=== PATIENT | female | born 1995 | race Caucasian/White ===

== ENCOUNTER 2017-12-02 19:55 | Emergency (ER) | payer OTHER ==
[2017-12-02 20:01] VITALS: BP 141/99
--- NOTE | 2017-12-02 22:01 | EDM.PDOCBH ---
ED HPI GENERAL MEDICAL PROBLEM - General Chief Complaint: Behavioral/Psych Stated Complaint: SELF CUTTING, [id number] Time Seen by Provider: 12/02/17 21:00 - History of Present Illness INITIAL COMMENTS - FREE TEXT/NARRATIVE: FDC depression, tonight tried cutting self on left arm with kitchen knife. Prior attempt [place]. - Related Data Allergies Allergy/AdvReac Type Severity Reaction Status Date / Time amoxicillin Allergy Other Verified 12/02/17 20:01 Sulfa (Sulfonamide Allergy Hives Verified 12/02/17 20:01 Antibiotics) Home Meds: Home Meds FLUoxetine [PROzac] 40 mg PO DAILY 07/14/16 [History] Fluticasone/Salmeterol [Advair 250-50 Diskus] 1 inh INH DAILY 07/14/16 [History] Fexofenadine HCl [Ivet Allergy] 60 mg PO DAILY 12/02/17 [History] Past Medical History - Past Health History Medical/Surgical History: Denies Medical/Surgical History HEENT History: Reports: Impaired Vision Other HEENT History: wears contacts Cardiovascular History: Reports: None Respiratory History: Reports: Asthma Gastrointestinal History: Reports: Gastritis Genitourinary History: Reports: None 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 Musculoskeletal History: Reports: None Neurological History: Reports: Concussion, Head Trauma, Migraines Psychiatric History: Reports: Depression, Suicide Attempt, Suicidal Ideation Endocrine/Metabolic History: Reports: None Hematologic History: Reports: None Immunologic History: Reports: None Oncologic (Cancer) History: Reports: None Dermatologic History: Reports: None - Past Surgical History Head Surgeries/Procedures: Reports: None HEENT Surgical History: Reports: Oral Surgery GI Surgical History: Reports: None Female Surgical History: Reports: None Social & Family History - Tobacco Use Smoking Status *Q: Current Every Day Smoker Years of Tobacco use: 1 Packs/Tins Daily: 0.5 Second Hand Smoke Exposure: Yes - Alcohol Use Days Per Week of Alcohol Use: 0 - Recreational Drug Use Recreational Drug Use: No Drug Use in Last 12 Months: No - Living Situation & Occupation Living situation: Reports: Single, with Family Occupation: Employed ED ROS GENERAL - Review of Systems Review Of Systems: ROS reveals no pertinent complaints other than HPI. ED EXAM, BEHAVIORAL HEALTH - Physical Exam Exam: See Below Exam Limited By: No Limitations General Appearance: Alert, Mild Distress Eye Exam: Bilateral Eye: EOMI Ears: Normal External Exam Throat/Mouth: Normal Voice Head: Atraumatic Neck: Full Range of Motion Neurological: Alert, Normal Cognition, Oriented x 3 Psychiatric: Alert, Flat Affect, Tearful, Suicidal Thoughts Skin Exam: Warm, Dry, Normal color, Signs of self injury (2 superficial scratches 7cm inner left forearm, no active bleeding) COURSE, BEHAVIORAL HEALTH COMP - Course Vital Signs: Last Vital Signs Temp 96.8 F 12/02/17 19:57 Pulse 92 12/02/17 19:57 Resp 18 12/02/17 19:57 BP 141/99 H 12/02/17 19:57 Pulse Ox 100 12/02/17 19:57 Orders, Labs, Meds: Laboratory Tests 12/02/17 12/02/17 12/02/17 Range/Units 21:25 21:25 21:25 Urine Color Light yellow (YELLOW) Urine Appearance Slightly cloudy (CLEAR) Urine pH 7.0 (5.0-9.0) Ur Specific [place] 1.010 (1.005-1.030) Urine Protein Negative (NEGATIVE) Urine Glucose (UA) Negative (NEGATIVE) Urine Ketones Negative (NEGATIVE) Urine Occult Blood Negative (NEGATIVE) Urine Nitrite Negative (NEGATIVE) Urine Bilirubin Negative (NEGATIVE) Urine Urobilinogen 0.2 (0.2-1.0) mg/dL Ur Leukocyte Esterase Negative (NEGATIVE) Urine RBC 0-5 /HPF Urine WBC 0-5 (0-5/HPF) /HPF Ur Epithelial Cells Many H /HPF Urine Bacteria Few (0-FEW/HPF) /HPF Urine HCG, Qual Negative Urine Opiates Screen Negative (NEGATIVE) Ur Oxycodone Screen Negative (NEGATIVE) Urine Methadone Screen Negative (NEGATIVE) Ur Barbiturates Screen Negative (NEGATIVE) U Tricyclic Antidepress Negative (NEGATIVE) Ur Phencyclidine Scrn Negative (NEGATIVE) Ur Amphetamine Screen Negative (NEGATIVE) U Methamphetamines Scrn Negative (NEGATIVE) Urine MDMA Screen Negative (NEGATIVE) U Benzodiazepines Scrn Negative (NEGATIVE) Urine Cocaine Screen Negative (NEGATIVE) U Marijuana (THC) Screen Negative (NEGATIVE) Re-Assessment/Re-Exam: [facility] Crisis Counselor here to asses patient. Safety plan for patient to stay with [facility]. Patient to be seen at [facility] this am. Departure - Departure Time of Disposition: 21:55 Disposition: Home, Self-Care 01 Condition: Good Clinical Impression: Depressive disorder, Self-harm - Discharge Information Instructions: Suicidal Feelings: How to Help Yourself Referrals: Kiley Us [Primary Care Provider] - Forms: ED Department Discharge Additional Instructions: monitor wounds for infection, follow up if redness , drainage follow up in morning with appointment with crisis counselor at [facility]
== END 2017-12-02 22:03 | disposition home or self-care (01) ==
LOC: DL.ED 19:55
DX: F32.9 Major depressive disorder, single episode, unspecified (principal); S50.812A Abrasion of left forearm, initial encounter; F17.210 Nicotine dependence, cigarettes, uncomplicated; Z88.1 Allergy status to other antibiotic agents; Z88.2 Allergy status to sulfonamides; Z79.899 Other long term (current) drug therapy; X78.1XXA Intentional self-harm by knife, initial encounter
CPT/HCPCS: 80305; 81001; 81025; 99284

== ENCOUNTER 2018-03-24 20:24 | Emergency (ER) | payer OTHER ==
--- NOTE | 2018-03-24 21:46 | EDM.PDOC ---
ED HPI GENERAL MEDICAL PROBLEM - General Chief Complaint: Lower Extremity Injury/Pain Stated Complaint: ROLLED ANKLE [id number] Time Seen by Provider: 03/24/18 20:55 Source of Information: Reports: Patient History Limitations: Reports: No Limitations - History of Present Illness INITIAL COMMENTS - FREE TEXT/NARRATIVE: C/o pain to right ankle with swelling after mis step and rolling ankle on step. Limited weight bearing. No other injury Right Ankle Pain Score (Numeric/FACES): 6 - Related Data Allergies Allergy/AdvReac Type Severity Reaction Status Date / Time amoxicillin Allergy Other Verified 12/02/17 20:01 Sulfa (Sulfonamide Allergy Hives Verified 12/02/17 20:01 Antibiotics) Home Meds: Home Meds FLUoxetine [PROzac] 40 mg PO DAILY 07/14/16 [History] Fluticasone/Salmeterol [Advair 250-50 Diskus] 1 inh INH DAILY 07/14/16 [History] Fexofenadine HCl [Ivet Allergy] 60 mg PO DAILY 12/02/17 [History] Past Medical History - Past Health History Medical/Surgical History: Denies Medical/Surgical History HEENT History: Reports: Impaired Vision Other HEENT History: wears contacts Cardiovascular History: Reports: None Respiratory History: Reports: Asthma Gastrointestinal History: Reports: Gastritis Genitourinary History: Reports: None 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 Musculoskeletal History: Reports: None Neurological History: Reports: Concussion, Head Trauma, Migraines Psychiatric History: Reports: Depression, Suicide Attempt, Suicidal Ideation Endocrine/Metabolic History: Reports: None Hematologic History: Reports: None Immunologic History: Reports: None Oncologic (Cancer) History: Reports: None Dermatologic History: Reports: None - Past Surgical History Head Surgeries/Procedures: Reports: None HEENT Surgical History: Reports: Oral Surgery GI Surgical History: Reports: None Female Surgical History: Reports: None Social & Family History - Tobacco Use Smoking Status *Q: Light Tobacco Smoker Years of Tobacco use: 1 Packs/Tins Daily: 2 Second Hand Smoke Exposure: Yes - Caffeine Use Caffeine Use: Reports: Coffee, Soda, Tea - Alcohol Use Days Per Week of Alcohol Use: 0 - Recreational Drug Use Recreational Drug Use: No Drug Use in Last 12 Months: No - Living Situation & Occupation Living situation: Reports: Single, with Family Occupation: Employed Review of Systems - Review of Systems Review Of Systems: See Below GI/Abdominal: Reports: Nausea, Vomiting Musculoskeletal: Reports: Foot Pain (right ankle), Joint Swelling Skin: Reports: Bruising Neurological: Reports: No Symptoms ED EXAM, GENERAL - Physical Exam Exam: See Below Exam Limited By: No Limitations General Appearance: Alert, Mild Distress Ears: Normal External Exam Nose: Normal Inspection Throat/Mouth: Normal Oropharynx Head: Atraumatic, Normocephalic Neck: Normal Inspection Respiratory/Chest: No Respiratory Distress, Normal Breath Sounds Cardiovascular: Normal Peripheral Pulses, Regular Rate, Rhythm Extremities: Joint Swelling (right ankle bluish bruising lateral ankle, no gross deformity, ) Neurological: Alert, Oriented, Normal Cognition Psychiatric: Anxious Skin Exam: Warm, Dry, Intact Course - Vital Signs Last Recorded V/S: Last Vital Signs Temp 97.8 F 03/24/18 21:50 Pulse 89 03/24/18 21:50 Resp 18 03/24/18 21:50 BP 128/78 03/24/18 21:50 Pulse Ox 100 03/24/18 21:50 - Orders/Labs/Meds Orders: Active Orders 24 hr Category Date Time Status Ankle Min 3V Rt [CR] Urgent Exams 03/24/18 20:51 Taken - Radiology Interpretation Free Text/Narrative:: Right ankle negative Departure - Departure Time of Disposition: 21:43 Disposition: Home, Self-Care 01 Condition: Good Clinical Impression: High ankle sprain of right lower extremity - Discharge Information Instructions: Ankle Sprain, [id number] Referrals: PCP,None [Primary Care Provider] - Forms: ED Department Discharge Additional Instructions: tylenol or ibuprofen for discomfort rest ice elevation of etremity crutches advance weight bearing as tolerated. clinic follow up as needed - My Orders Last 24 Hours: My Active Orders 03/24/18 20:51 Ankle Min 3V Rt [CR] Urgent - Assessment/Plan Last 24 Hours: My Active Orders 03/24/18 20:51 Ankle Min 3V Rt [CR] Urgent
[2018-03-24 21:54] VITALS: BP 128/78
== END 2018-03-24 21:50 | disposition home or self-care (01) ==
LOC: DL.ED 20:24
DX: S93.401A Sprain of unspecified ligament of right ankle, initial encounter (principal); S90.01XA Contusion of right ankle, initial encounter; F17.210 Nicotine dependence, cigarettes, uncomplicated; Z88.1 Allergy status to other antibiotic agents; Z88.2 Allergy status to sulfonamides; Z79.899 Other long term (current) drug therapy; X50.9XXA Other and unspecified overexertion or strenuous movements or postures, initial encounter
CPT/HCPCS: 73610-RT; 99283

== ENCOUNTER 2018-05-02 15:28 | Emergency (ER) | payer OTHER ==
[2018-05-02 15:19] VITALS: BP 119/68
--- NOTE | 2018-05-02 15:29 | EDM.PDOC ---
ED HPI GENERAL MEDICAL PROBLEM - General Chief Complaint: Abdominal Pain Stated Complaint: EXTREME AB PAIN-NO BACK PAIN (PV) Time Seen by Provider: 05/02/18 15:29 Source of Information: Reports: Patient, Old Records, RN, RN Notes Reviewed History Limitations: Reports: No Limitations - History of Present Illness INITIAL COMMENTS - FREE TEXT/NARRATIVE: Pt presents to ER by POV with c/o severe abdominal pain and cramping. She reports having abd. cramps and diarrhea for several days before she was seen in clinic and treated with an anti-diarrheal medication. Since taking the diarrhea med. she has not had any more loose or watery stools, but the cramps have significantly worsened. Pt denies nausea or vomiting, fevers, or chills. She admits to increased flatus and belching. 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) Upper Abdomen Pain Score (Numeric/FACES): 8 - Related Data Allergies Allergy/AdvReac Type Severity Reaction Status Date / Time amoxicillin Allergy Other Verified 05/02/18 15:19 Sulfa (Sulfonamide Allergy Hives Verified 05/02/18 15:19 Antibiotics) Home Meds: Home Meds FLUoxetine [PROzac] 40 mg PO DAILY 07/14/16 [History] Fluticasone/Salmeterol [Advair 250-50 Diskus] 1 inh INH DAILY 07/14/16 [History] Fexofenadine HCl [Ivet Allergy] 60 mg PO DAILY 12/02/17 [History] Multivitamin [Multi-Day Vitamins] 1 tab PO DAILY 05/02/18 [History] Past Medical History - Past Health History Medical/Surgical History: Denies Medical/Surgical History HEENT History: Reports: Impaired Vision Other HEENT History: wears contacts Cardiovascular History: Reports: None Respiratory History: Reports: Asthma Gastrointestinal History: Reports: Gastritis Genitourinary History: Reports: None 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 Musculoskeletal History: Reports: None Neurological History: Reports: Concussion, Head Trauma, Migraines Psychiatric History: Reports: Depression, Suicide Attempt, Suicidal Ideation Endocrine/Metabolic History: Reports: None Hematologic History: Reports: None Immunologic History: Reports: None Oncologic (Cancer) History: Reports: None Dermatologic History: Reports: None - Past Surgical History Head Surgeries/Procedures: Reports: None HEENT Surgical History: Reports: Oral Surgery GI Surgical History: Reports: None Female Surgical History: Reports: None Social & Family History - Tobacco Use Years of Tobacco use: 2 Packs/Tins Daily: 0.5 Second Hand Smoke Exposure: No - Caffeine Use Caffeine Use: Reports: Coffee - Recreational Drug Use Recreational Drug Use: No - Living Situation & Occupation Living situation: Reports: Single, with Family Occupation: Employed ED ROS GENERAL - Review of Systems Review Of Systems: ROS reveals no pertinent complaints other than HPI. ED EXAM, GI/ABD - Physical Exam Exam: See Below Exam Limited By: No Limitations General Appearance: Alert, WD/WN, No Apparent Distress Eyes: Bilateral: Normal Appearance Nose: Normal Inspection Throat/Mouth: Normal Inspection, Normal Lips, Normal Teeth, Normal Gums, Normal Oropharynx, Normal Voice, No Airway Compromise Head: Atraumatic, Normocephalic Neck: Normal Inspection, Supple, Non-Tender, Full Range of Motion Respiratory/Chest: No Respiratory Distress, Lungs Clear, Normal Breath Sounds, No Accessory Muscle Use, Chest Non-Tender Cardiovascular: Regular Rate, Rhythm GI/Abdominal Exam: Soft, No Distention, No Abnormal Bruit, Pelvis Stable, Tender (generalized middle, epigastric, and left abdominal tenderness to palpation), Abnormal Bowel Sounds (hyperactive bowel sounds). No: Guarding, Rigid, Rebound (Female) Exam: Deferred Rectal (Female) Exam: Deferred Back Exam: Normal Inspection. No: CVA Tenderness (L), CVA Tenderness (R) Extremities: Normal Inspection Neurological: Alert, Oriented, CN II-XII Intact, Normal Cognition, Normal Gait, Normal Reflexes, No Motor/Sensory Deficits Psychiatric: Normal Affect, Normal Mood Skin Exam: Warm, Dry, Intact, Normal Color, No Rash Course - Vital Signs Last Recorded V/S: Last Vital Signs Temp 36.6 C 05/02/18 15:15 Pulse 88 05/02/18 15:15 Resp 18 05/02/18 15:15 BP 119/68 05/02/18 15:15 Pulse Ox 100 05/02/18 15:15 - Orders/Labs/Meds Orders: Active Orders 24 hr Category Date Time Status HCG QUALITATIVE,URINE [URCHEM] Stat Lab 05/02/18 16:12 Ordered UA W/MICROSCOPIC [URIN] Stat Lab 05/02/18 16:12 Ordered Labs: Laboratory Tests 05/02/18 05/02/18 05/02/18 Range/Units 15:40 15:40 16:12 WBC 5.4 (5.0-10.0) 10^3/uL RBC 4.26 (4.2-5.4) 10^6/uL Hgb 12.8 (12.0-16.0) g/dL Hct 37.0 (37.0-47.0) % MCV 86.9 (80-100) fL MCH 30.0 (27.0-34.0) pg MCHC 34.6 (33.0-35.0) g/dL Plt Count 241 (150-450) 10^3/uL Neut % (Auto) 66.3 (42.2-75.2) % Lymph % (Auto) 22.3 (20.5-50.1) % [place] % (Auto) 9.7 H (2-8) % Eos % (Auto) 1.3 (1.0-3.0) % Baso % (Auto) 0.4 (0.0-1.0) % Sodium 135 (135-145) mmol/L Potassium 3.1 L (3.6-5.0) mmol/L Chloride 104 (101-111) mmol/L Carbon Dioxide 22.0 (21.0-31.0) mmol/L Anion Gap 12.1 BUN 11 (7-18) mg/dL Creatinine 0.6 (0.6-1.3) mg/dL Est Cr Clr Drug Dosing 110.04 mL/min Estimated GFR (MDRD) > 60 BUN/Creatinine Ratio 18.33 Glucose 99 (74-105) mg/dL Calcium 8.8 (8.4-10.2) mg/dl Total Bilirubin 0.4 (0.2-1.0) mg/dL AST 32 (10-42) IU/L ALT 32 (10-60) IU/L Alkaline Phosphatase 48 (42-121) IU/L Total Protein 7.5 (6.7-8.2) g/dl Albumin 3.9 (3.2-5.5) g/dl Globulin 3.6 Albumin/Globulin Ratio 1.08 Amylase 53 (28-100) U/L Lipase 27 (22-51) U/L Urine Color Yellow (YELLOW) Urine Appearance Slightly cloudy (CLEAR) Urine pH 6.0 (5.0-9.0) Ur Specific [place] 1.025 (1.005-1.030) Urine Protein Negative (NEGATIVE) Urine Glucose (UA) Negative (NEGATIVE) Urine Ketones Trace H (NEGATIVE) Urine Occult Blood Negative (NEGATIVE) Urine Nitrite Negative (NEGATIVE) Urine Bilirubin Small H (NEGATIVE) Urine Urobilinogen 0.2 (0.2-1.0) mg/dL Ur Leukocyte Esterase Negative (NEGATIVE) Urine RBC 0-5 /HPF Urine WBC 0-5 (0-5/HPF) /HPF Ur Epithelial Cells Few /HPF Amorphous Sediment Few (0/HPF) /HPF Urine Bacteria Rare (0-FEW/HPF) /HPF Urine Mucus Rare /LPF Urine HCG, Qual 05/02/18 Range/Units 16:12 WBC (5.0-10.0) 10^3/uL RBC (4.2-5.4) 10^6/uL Hgb (12.0-16.0) g/dL Hct (37.0-47.0) % MCV (80-100) fL MCH (27.0-34.0) pg MCHC (33.0-35.0) g/dL Plt Count (150-450) 10^3/uL Neut % (Auto) (42.2-75.2) % Lymph % (Auto) (20.5-50.1) % [place] % (Auto) (2-8) % Eos % (Auto) (1.0-3.0) % Baso % (Auto) (0.0-1.0) % Sodium (135-145) mmol/L Potassium (3.6-5.0) mmol/L Chloride (101-111) mmol/L Carbon Dioxide (21.0-31.0) mmol/L Anion Gap BUN (7-18) mg/dL Creatinine (0.6-1.3) mg/dL Est Cr Clr Drug Dosing mL/min Estimated GFR (MDRD) BUN/Creatinine Ratio Glucose (74-105) mg/dL Calcium (8.4-10.2) mg/dl Total Bilirubin (0.2-1.0) mg/dL AST (10-42) IU/L ALT (10-60) IU/L Alkaline Phosphatase (42-121) IU/L Total Protein (6.7-8.2) g/dl Albumin (3.2-5.5) g/dl Globulin Albumin/Globulin Ratio Amylase (28-100) U/L Lipase (22-51) U/L Urine Color (YELLOW) Urine Appearance (CLEAR) Urine pH (5.0-9.0) Ur Specific [place] (1.005-1.030) Urine Protein (NEGATIVE) Urine Glucose (UA) (NEGATIVE) Urine Ketones (NEGATIVE) Urine Occult Blood (NEGATIVE) Urine Nitrite (NEGATIVE) Urine Bilirubin (NEGATIVE) Urine Urobilinogen (0.2-1.0) mg/dL Ur Leukocyte Esterase (NEGATIVE) Urine RBC /HPF Urine WBC (0-5/HPF) /HPF Ur Epithelial Cells /HPF Amorphous Sediment (0/HPF) /HPF Urine Bacteria (0-FEW/HPF) /HPF Urine Mucus /LPF Urine HCG, Qual Negative Meds: Medications Discontinued Medications Generic Name Dose Route Start Last Admin Trade Name Freq PRN Reason Stop Dose Admin Al Hydroxide/Mg Hydroxide 30 ml 05/02/18 16:43 05/02/18 16:56 Gi Cocktail PO 05/02/18 16:44 30 ml ONETIME ONE Administration Dicyclomine HCl 20 mg 05/02/18 15:44 05/02/18 15:47 Bentyl IM 05/02/18 15:45 20 mg ONETIME ONE Administration Simethicone 160 mg 05/02/18 16:43 05/02/18 16:55 Simethicone PO 05/02/18 16:44 160 mg ONETIME ONE Administration - Radiology Interpretation Free Text/Narrative:: 2V Abd. Xray: non-obstructive bowel gas pattern, no acute findings per Rad. report. Departure - Departure Time of Disposition: 17:10 Disposition: Home, Self-Care 01 Condition: Fair Clinical Impression: Colitis Diarrhea Qualifiers: Diarrhea type: presumed infectious Qualified Code(s): R19.7 - Diarrhea, unspecified Abdominal pain Qualifiers: Abdominal location: generalized Qualified Code(s): R10.84 - Generalized abdominal pain - Discharge Information Instructions: Abdominal Pain, Adult, Colitis, Diarrhea, Adult, [id number] Referrals: Kiley Us [Primary Care Provider] - Forms: ED Department Discharge Additional Instructions: Rx: Bentyl (Dicyclomine) 20mg *Do not drive or work while under the influence of this medication. Use over the counter simethicone 40mg: Take 2 tablets by mouth every 4 to 6 hours as needed for abdominal cramping or gas. Drink plenty of water. Follow up in clinic if not improved in 3 days. - My Orders Last 24 Hours: My Active Orders 05/02/18 16:12 HCG QUALITATIVE,URINE [URCHEM] Stat UA W/MICROSCOPIC [URIN] Stat - Assessment/Plan Last 24 Hours: My Active Orders 05/02/18 16:12 HCG QUALITATIVE,URINE [URCHEM] Stat UA W/MICROSCOPIC [URIN] Stat
[2018-05-02] MEDS ORDERED: Dicyclomine 20 MG/2 ML SDV IM ONE (15:44)
[2018-05-02 16:07] LABS: CHLORIDE,CL 104 mmol/L (101-111); SODIUM,NA 135 mmol/L (135-145)
[2018-05-02] MEDS ORDERED: GI Cocktail Oral Solution 30 ML PO ONE (16:43)
[2018-05-02] MEDS ORDERED: Simethicone 80 MG Tab.Chew PO ONE (16:43)
--- NOTE | 2018-05-02 16:56 | CR ---
Clinical history: 23-year-old female complaining of upper abdominal pain. Gastroenteritis? Rule out intra-abdominal mass, mechanical bowel obstruction or other abnormality. Interpretation: Surgical clips gallbladder fossa RUQ (cholecystectomy). AP lumbar spine pelvis and hip joints unremarkable. Lung bases clear. Normal cardiac silhouette. Nonspecific bowel pattern i.e. no sign of mechanical obstruction large or small bowel. No pathologic calcification, abdominal soft tissue mass lesion or free intraperitoneal air. CONCLUSION: Cholecystectomy. Negative plain film exam abdomen. Lung bases clear.
== END 2018-05-02 17:42 | disposition home or self-care (01) ==
LOC: DL.ED 15:28
DX: K52.9 Noninfective gastroenteritis and colitis, unspecified (principal); Z88.1 Allergy status to other antibiotic agents; Z88.2 Allergy status to sulfonamides; Z79.899 Other long term (current) drug therapy
CPT/HCPCS: 36415; 74021; 80053; 81001; 81025; 82150; 83690; 85025; 96372; 99284; A9270; J0500

== ENCOUNTER 2019-02-16 16:07 | Emergency (ER) | payer OTHER ==
[2019-02-16 16:32] VITALS: BP 128/82
--- NOTE | 2019-02-16 17:25 | CT ---
Clinical history: 23-year-old 164 pound female complaining of posterior neck pain after a "table fell on her head". "Normal cervical spine" reported on plain films 14 July 2016. Scan technique: Volume acquisition of data emergency unenhanced CT scan of the cervical spine obtained while the patient was lying supine on the Siemens multi slice scanner [place], [place]. All data archived in the PACS system for storage, reformatting axial/sagittal/coronal planes and study. Interpretation: Negative exam. Homogeneous normal bone density, height and alignment of the 7 cervical and first 2 thoracic vertebra. No basal skull fracture. No sign of prevertebral soft tissue swelling, cervical fracture, spondylolisthesis or jumped locked facet. Normal intervertebral disc space narrowing. No cervical rib anomalies. Both lung apices are clear.
--- NOTE | 2019-02-16 17:35 | EDM.PDOC ---
Scribed by Herminia Spangler 02/16/19 [id number] for Dayne Wilson PA ED HPI GENERAL MEDICAL PROBLEM - General Chief Complaint: General Stated Complaint: TABLE FELL ON HER AT WORK Time Seen by Provider: 02/16/19 16:20 Source of Information: Reports: Patient, RN, RN Notes Reviewed History Limitations: Reports: No Limitations - History of Present Illness INITIAL COMMENTS - FREE TEXT/NARRATIVE: This is a 23-remedios-old female reports to the ED due to pain in her posterior head and posterior neck. The patient was working at [employer] when a table fell on her at work. The patient has a posterior headache and pain in her posterior neck. Onset: Today Duration: Getting Worse Location: Reports: Head, Neck Quality: Reports: Ache Severity: Moderate Improves with: Reports: None Worsens with: Reports: None Associated Symptoms: Reports: No Other Symptoms - Related Data Allergies Allergy/AdvReac Type Severity Reaction Status Date / Time amoxicillin Allergy Other Verified 02/16/19 16:15 Sulfa (Sulfonamide Allergy Hives Verified 02/16/19 16:15 Antibiotics) Home Meds: Home Meds Fluticasone/Salmeterol [Advair 250-50 Diskus] 1 inh INH DAILY 07/14/16 [History] Fexofenadine HCl [Ivet Allergy] 60 mg PO DAILY 12/02/17 [History] Multivitamin [Multi-Day Vitamins] 1 tab PO DAILY 05/02/18 [History] Past Medical History - Past Health History Medical/Surgical History: Denies Medical/Surgical History HEENT History: Reports: Impaired Vision Other HEENT History: wears contacts Cardiovascular History: Reports: None Respiratory History: Reports: Asthma Gastrointestinal History: Reports: Gastritis Genitourinary History: Reports: None [employer] History: Reports: None Musculoskeletal History: Reports: None Neurological History: Reports: Concussion, Head Trauma, Migraines Psychiatric History: Reports: Depression, Suicide Attempt, Suicidal Ideation Endocrine/Metabolic History: Reports: None Hematologic History: Reports: None Immunologic History: Reports: None Oncologic (Cancer) History: Reports: None Dermatologic History: Reports: None - Past Surgical History Head Surgeries/Procedures: Reports: None HEENT Surgical History: Reports: Oral Surgery GI Surgical History: Reports: None Female Surgical History: Reports: None Social & Family History - Caffeine Use Caffeine Use: Reports: Coffee - Living Situation & Occupation Living situation: Reports: Single, with Family Occupation: Employed ED ROS GENERAL - Review of Systems Review Of Systems: ROS reveals no pertinent complaints other than HPI. ED EXAM, GENERAL - Physical Exam Exam: See Below Exam Limited By: No Limitations General Appearance: Alert, WD/WN, No Apparent Distress Eye Exam: Bilateral Eye: EOMI, Normal Inspection, PERRL Ears: Normal External Exam, Normal Canal, Hearing Grossly Normal, Normal TMs Nose: Normal Inspection, Normal Mucosa, No Blood Throat/Mouth: Normal Inspection, Normal Lips, Normal Teeth, Normal Gums, Normal Oropharynx, Normal Voice, No Airway Compromise Head: Atraumatic, Normocephalic Neck: Other (posterior neck pain) Respiratory/Chest: No Respiratory Distress, Lungs Clear, Normal Breath Sounds, No Accessory Muscle Use, Chest Non-Tender Cardiovascular: Normal Peripheral Pulses, Regular Rate, Rhythm, No Edema, No Gallop, No JVD, No Murmur, No Rub GI/Abdominal: Normal Bowel Sounds, Soft, Non-Tender, No Organomegaly, No Distention, No Abnormal Bruit, No Mass (Female) Exam: Deferred Rectal (Female) Exam: Deferred Back Exam: Other (other traume neck addressed above) Extremities: Normal Inspection, Normal Range of Motion, Non-Tender, Normal Capillary Refill, No Pedal Edema Neurological: Alert, Oriented, CN II-XII Intact, Normal Cognition, Normal Gait, Normal Reflexes, No Motor/Sensory Deficits Psychiatric: Normal Affect, Normal Mood Skin Exam: Warm, Dry, Intact, Normal Color, No Rash Lymphatic: No Adenopathy Course - Vital Signs Last Recorded V/S: Last Vital Signs Temp 37.2 C 02/16/19 16:29 Pulse 99 02/16/19 16:29 Resp 16 02/16/19 16:29 BP 128/82 02/16/19 16:29 Pulse Ox 100 02/16/19 16:29 - Orders/Labs/Meds Labs: Laboratory Tests 02/16/19 02/16/19 Range/Units 16:35 16:35 Urine Color Yellow (YELLOW) Urine Appearance Clear (CLEAR) Urine pH 7.0 (5.0-9.0) Ur Specific [place] 1.020 (1.005-1.030) Urine Protein Negative (NEGATIVE) Urine Glucose (UA) Negative (NEGATIVE) Urine Ketones Negative (NEGATIVE) Urine Occult Blood Negative (NEGATIVE) Urine Nitrite Negative (NEGATIVE) Urine Bilirubin Negative (NEGATIVE) Urine Urobilinogen 0.2 (0.2-1.0) mg/dL Ur Leukocyte Esterase Negative (NEGATIVE) Urine HCG, Qual Negative Departure - Departure Time of Disposition: 17:31 Disposition: Home, Self-Care 01 Condition: Fair Clinical Impression: Concussion Qualifiers: Encounter type: initial encounter Loss of consciousness presence/duration: without LOC Qualified Code(s): S06.0X0A - Concussion without loss of consciousness, initial encounter Neck muscle strain Qualifiers: Encounter type: initial encounter Qualified Code(s): S16.1XXA - Strain of muscle, fascia and tendon at neck level, initial encounter - Discharge Information *PRESCRIPTION DRUG MONITORING PROGRAM REVIEWED*: Not Applicable *COPY OF PRESCRIPTION DRUG MONITORING REPORT IN PATIENT SUKUMAR: Not Applicable Instructions: Concussion, Adult, [id number], Post-Concussion Syndrome, Easy- to-Read, Cervical Sprain, [id number] Forms: ED Department Discharge Care Plan Goals: The patient was advised of the examination, lab and CT results during the visit. The patient was encouraged to rest and relax over the next week. The patient may take Tylenol or ibuprofen for temporary symptom relief. The patient should follow-up with a primary care facility next week for further evaluation and management. If the patient has any additional symptoms or concerns, the patient should either return to the emergency department or visit her primary care facility. I have read and agree with the documentation that has been completed regarding this visit. By signing this record, I attest that the documentation was completed in my physical presence and is an accurate record of the encounter.
== END 2019-02-16 17:41 | disposition home or self-care (01) ==
LOC: DL.ED 16:07
DX: S06.0X0A Concussion without loss of consciousness, initial encounter (principal); S16.1XXA Strain of muscle, fascia and tendon at neck level, initial encounter; Z88.1 Allergy status to other antibiotic agents; Z88.2 Allergy status to sulfonamides; W20.8XXA Other cause of strike by thrown, projected or falling object, initial encounter; Y99.0 Civilian activity done for income or pay
CPT/HCPCS: 72125; 81003; 81025; 99284-25